=== PATIENT | female | born 1980 | race Caucasian/White ===

== ENCOUNTER 2016-11-01 20:49 | Emergency (ER) | payer MEDICARE, OTHER ==
[~2016-11-01 20:49] MED LIST: AMITRIPTYLINE150 MG PO; LORAZEPAM1 MG PO; VOLTAREN75 MG PO; ZANAFLEX4 M1 PO; ZOLOFT50 MG PO; ZYRTEC PO
== END 2016-11-01 22:26 | disposition home or self-care (01) ==
LOC: CED 20:49
DX: F41.9 Anxiety disorder, unspecified (principal); B35.4 Tinea corporis; I10 Essential (primary) hypertension; F17.210 Nicotine dependence, cigarettes, uncomplicated
CPT/HCPCS: 99283